=== PATIENT | male | born 1960 | race Caucasian/White ===

== ENCOUNTER 2018-08-17 14:49 | Inpatient (IN) | payer BC, SELFPAY ==
[2018-08-17 16:55] VITALS: BMI 33.2
[2018-08-17] MEDS ORDERED: Ondansetron PF 4 MG/2 ML Vial IVP PRN (17:51)
[2018-08-17] MEDS ORDERED: Communication Order-Pharmacy FS ONE (17:51)
--- NOTE | 2018-08-17 18:14 | RAD ---
EXAM: Single view of the chest HISTORY: Preoperative radiograph prior to open heart surgery COMPARISON: None FINDINGS: Single view of the chest shows a normal sized cardiomediastinal silhouette. There is no valente dence of consolidation, mass, or pleural effusion. Degenerative changes are seen in the spine. IMPRESSION: No evidence of acute cardiopulmonary disease
[2018-08-17 18:32] LABS: #Basophils 0.1 thou/uL (0.0-0.2); #Eosinphils 0.2 thou/uL (0.0-0.7); #Lymphocytes 2.6 thou/uL (1.20-3.40); #Monocytes 0.8 thou/uL (0.11-0.59); #Neutrophils 4.3 thou/uL (1.40-6.50); %Basophils 1.2 % (0.0-1.0); %Eosinophils 2.6 % (0.0-10.0); %Lymphocytes 32.4 % (21.0-51.0); %Monocytes 9.7 % (0.0-10.0); %Neutrophils 54.1 % (42.0-75.0); Hemoglobin 15.8 g/dL (14.0-18.0); Mean Corpuscular HGB CONC 34.6 g/dL (32.0-36.0); Mean Corpuscular Hemoglobin 30.9 pg (27.0-31.0); Mean Corpuscular Volume 89.3 fL (78.0-98.0); Mean Platelet Volume 9.1 fL (7.4-10.4); Platelet Count 175 thou/uL (130-400); RBC Distribution Width 11.6 % (11.5-14.5); Red Blood Cell (RBC) Count 5.11 mill/uL (4.70-6.10)
[2018-08-17 18:37] LABS: Hemoglobin A1c 5.4 % (4.0-6.0); Prothrombin Time 12.8 SEC (12.0-14.7)
[2018-08-17 18:49] LABS: Anion Gap 13 mmol/L (10-20); BUN (Urea Nitrogen) 23 mg/dL (8.4-25.7); Calc. Creatinine Clearance 131 mL/min (70-130); Calcium 9.3 mg/dL (7.8-10.44); Carbon Dioxide 23 mmol/L (22-29); Chloride 105 mmol/L (98-107); Estimated GFR-MDRD 83; Glucose 82 mg/dL (70-105); Potassium 3.5 mmol/L (3.5-5.1); Sodium 137 mmol/L (136-145)
[2018-08-17] MEDS: Famotidine/PF 20 mg/2ml Vial SLOW IVP SCH (20:16)
--- NOTE | 2018-08-18 00:57 | CON ---
DATE OF CONSULTATION: 08/17/2018 REASON FOR CONSULTATION: Evaluate patient for coronary artery bypass grafting. HISTORY OF PRESENT ILLNESS: Mr. Benjamin is a 58-year-old gentleman, who had begun to have upper mid sternal pain with exertion. He was seen by Dr. Zhang and underwent stress testing, which was positive. This was followed with cardiac catheterization today. Ventriculogram shows an ejection fraction of approximately 60%. The left and right main coronary arteries have severe stenoses. Bypassable targets include distal right coronary artery, LAD, diagonal and OM. Currently, he is resting comfortably in the IMCU without chest pain or other complaint. PAST MEDICAL HISTORY: 1. Hypertension. 2. GERD. 3. History of a stroke in 1992, which was due to an intercerebral aneurysm. PAST SURGICAL HISTORY: 1. Appendectomy. 2. Right wrist surgery. 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 He does not use tobacco. ALLERGIES: NONE. CURRENT MEDICATIONS: 1. Omeprazole 40 mg daily. 2. Losartan/HCTZ 100/25 daily. REVIEW OF SYSTEMS: A 10-point review of systems is performed and is negative except as above. PHYSICAL EXAMINATION: GENERAL: Well-developed, well-nourished man, resting comfortably in bed. VITAL SIGNS: Height 5 feet 11 inches, weight is 238 pounds. BSA is 2.33, pulse is 59 and regular, blood pressure is 150/88. HEENT: Sclerae nonicteric. Pupils are equal and round bilaterally. NECK: Supple without bruit. CHEST: Clear to auscultation and percussion bilaterally. HEART: Rhythm is regular without murmur. ABDOMEN: Soft and nontender. There are no masses. EXTREMITIES: No cyanosis, clubbing, or edema. VASCULAR: He has palpable carotid, radial, femoral, dorsalis pedis pulses bilaterally. VENOUS: No venous varicosities or venous stasis change. PSYCHIATRIC: The patient is awake, alert, and oriented to person, place, and time. NEUROLOGIC: The patient states that occasionally when he becomes fatigued, he has some right footdrop and drags his right foot, but otherwise has completely recovered neurologically from his stroke. LABORATORY DATA: Laboratories pending. IMAGING DATA: Chest x-ray shows no dominant lung mass. Lungs are well expanded bilaterally with normal cardiac silhouette. ASSESSMENT AND PLAN: This is a 58-year-old gentleman admitted with a positive stress test and critical coronary anatomy on angiogram. Left ventricular function is preserved. I discussed coronary artery bypass grafting with him with distal targets including left anterior descending, diagonal, obtuse marginal, and distal right coronary. He is agreeable to proceed tomorrow. He has been consented and signed. Job ID: [id number]
[2018-08-18] MEDS ORDERED: Dexamethasone 4 mg/ml Vial ONE (06:25)
[2018-08-18] MEDS ORDERED: Bupivacaine HCl 0.5%/Epinephrine 1:200,000/PF 30 ml Vial ONE (06:25)
[2018-08-18] MEDS ORDERED: Albumin 5% 500 ML ONE (06:26)
[2018-08-18] MEDS ORDERED: Heparin 10,000 UNITS/1 ML VIAL 30,000 UNITS in Sodium Chloride 0.9% 1,000 ML IVPB SCH (06:45)
[2018-08-18] MEDS ORDERED: Fentanyl 250 MCG/5 ML VIAL ONE (06:47)
[2018-08-18] MEDS ORDERED: Norepinephrine 4 MG/4 ML VIAL ONE (06:48)
[2018-08-18] MEDS ORDERED: Vecuronium 10 MG VIAL ONE (06:48)
[2018-08-18] MEDS ORDERED: Midazolam HCl 5 mg/5 ml Vial ONE (06:48)
[2018-08-18] MEDS ORDERED: Dexmedetomidine 200 MCG/2 ML VIAL ONE (06:48)
[2018-08-18] MEDS ORDERED: Midazolam HCl 2 mg/2 ml Vial ONE (07:29)
[2018-08-18] MEDS ORDERED: Ondansetron ODT 4 MG TAB ONE (07:30)
[2018-08-18] MEDS: Famotidine/PF 20 mg/2ml Vial SLOW IVP SCH (11:51)
[2018-08-18] MEDS ORDERED: Magnesium 2 GM/50 ML 2 GM in Premix Bag 1 BAG IVPB SCH (12:26)
[2018-08-18] MEDS ORDERED: HYDROcodone/Acetaminophen 5/325 mg Tablet PO PRN (12:26)
[2018-08-18] MEDS ORDERED: Ondansetron PF 4 MG/2 ML Vial IVP PRN (12:26)
[2018-08-18] MEDS ORDERED: Fentanyl 100 MCG/2 ML VIAL SLOW IVP PRN ×2 (12:26)
[2018-08-18] MEDS ORDERED: Bisacodyl 10 MG SUPP PR PRN (12:26)
[2018-08-18] MEDS ORDERED: Morphine 2 MG/ML SYRINGE SLOW IVP PRN (12:26)
[2018-08-18] MEDS ORDERED: hydrALAZINE 20 MG/ML VIAL SLOW IVP PRN (12:26)
[2018-08-18] MEDS ORDERED: Nitroglycerin 50 MG/250 ML BOT 250 ML IVPB PRN (12:26)
[2018-08-18] MEDS ORDERED: Mag-Al 1200 mg/1200 mg/30 ML UDCUP PO PRN (12:26)
[2018-08-18] MEDS ORDERED: Promethazine HCl 25 MG/ML VIAL IM PRN (12:26)
[2018-08-18] MEDS ORDERED: Bisacodyl 5 MG TAB PO PRN (12:26)
[2018-08-18] MEDS ORDERED: Acetaminophen 325 MG TAB PO PRN (12:26)
[2018-08-18] MEDS ORDERED: Norepinephrine 8 MG/0.9% NS 250 ML IVPB PRN (12:26)
[2018-08-18] MEDS ORDERED: Hetastarch 6% 500 ML 500 ML IVPB PRN (12:26)
[2018-08-18] MEDS ORDERED: D5 1/2 NS w/20 mEq KCL 1,000 ML IV SCH (12:26)
[2018-08-18] MEDS ORDERED: Guaifenesin DM 100-10/5 ML UDCUP PO PRN (12:26)
[2018-08-18] MEDS ORDERED: Dextrose 5% in Water 1,000 ML IV PRN (12:41)
[2018-08-18] MEDS ORDERED: Dextrose 50% Abboject 50 ML SYRINGE SLOW IVP PRN (12:41)
[2018-08-18 12:46] LABS: INR-International Normal Ratio 1.3; Prothrombin Time 16.3 SEC (12.0-14.7)
--- NOTE | 2018-08-18 12:47 | RAD ---
PORTABLE CHEST: DATE: 08/18/2018. PROVIDED CLINICAL HISTORY: Post open heart. FINDINGS: Comparison 08/17/2018. Cardiac silhouette appears prominent, likely at least partially on the basis o f portable supine technique. Interval median sternotomy changes. Interval placement of endotracheal tube, the tip of which projects in the region of the thoracic inlet. Right-sided central line is no rosalind, the tip of which overlies the expected location of right atrium. The supine nature of the exami nation is not sensitive for detection of pleural fluid or pneumothorax. Scattered areas of presumed subsegmental atelectatic change are seen. IMPRESSION: No evidence for an acute cardiopulmonary process with limitations as above. Interval lines and tubes . POS: OFF
[2018-08-18] MEDS: Insulin Regular 300 UNITS/3 ML VIAL SC PRN ×4 (12:49→23:25)
--- NOTE | 2018-08-18 12:49 | OP ---
DATE OF PROCEDURE: 08/18/2018 PREOPERATIVE DIAGNOSES: Coronary artery disease/hypertension. POSTOPERATIVE DIAGNOSES: Coronary artery disease/hypertension. PROCEDURES PERFORMED: Coronary bypass grafting x3. 1. Left internal mammary artery to 1.0-mm mid LAD - good conduit with diffusely diseased, heavily calcified target. 2. Reverse saphenous vein with 1.0-mm diagonal - good conduit and small target. 3. Reverse saphenous vein to 1.5-mm PDA - good conduit, small target. Note, OM was un-bypassable. I would not consider him for redo bypass due to target quality. CO-SURGEON: Dr. Mehul Shepard. ANESTHESIA: General endotracheal - Dr. Torey Toro. PUMP TIME: 48 minutes. CROSS-CLAMP TIME: 29 minutes. LOW-CORE TEMP: 34 degrees Celsius. BINDER CASER: Luz Elena Flanagan. DRAINS: 24-Afghan chest tubes x2. DRIPS: None. TRANSFUSIONS: None. DESCRIPTION OF PROCEDURE: After consent was obtained, the patient was brought to the operating room, placed in supine position on the operating table. Appropriate lines and monitors were placed and general endotracheal anesthesia was induced. Chest and legs were prepped and draped in usual sterile fashion. Using the endoscopic technique, the greater saphenous vein from the left leg was harvested from groin to foot. The vein was then prepared. There was only about 2 segments of vein that were usable out of this leg. Then, 2 skip incisions were made, 1 in the right upper thigh and vein harvested. This was a higher quality vein from the right leg. Wound was irrigated and closed in layers. Median sternotomy was performed. Left internal mammary artery was harvested as a pedicle graft. The patient was systemically heparinized. Distal pedicle was divided and infused with papaverine. Thymic fat and pericardium were divided with electrocautery. Pericardial stay sutures were placed. Aortic and atrial cannulation was performed. After adequate heparinization, retrograde prime was performed. The patient was placed on cardiopulmonary bypass. Distal targets were marked. Aortic cross-clamp was applied and antegrade sanguinous cardioplegic arrest was obtained. 1 L of antegrade cold [place] cardioplegia was given. Topical cold solution was used. Reverse saphenous vein was anastomosed to PDA in an end-to-side fashion with running 7-0 Prolene suture. Anastomosis was tested and was hemostatic. The OM system was explored and there was no bypassable target. Reverse saphenous vein was anastomosed to the 1st diagonal in an end-to-side fashion with running 7-0 Prolene suture. Anastomosis was tested and it was hemostatic. The mammary artery was brought through a window in the pericardium and anastomosed to the mid LAD with running 7-0 Prolene suture. Prior to completion of the anastomosis, a 1-mm probe dilated the anastomosis both proximally and distally. On release of the mammary clamps, good hooding the anastomosis and good distal flow. Pedicle was sutured with interrupted 6-0 Prolene suture. Cross-clamp was removed and partial occluding clamp was placed. Saphenous veins were anastomosed to individual punch sites on the aorta with running 6-0 Prolene suture. Partial occluding clamp was removed and graft was deaired. Anastomoses were inspected for hemostasis, which was good. The patient was warmed and weaned from cardiopulmonary bypass. After resumption of sinus rhythm, good hemodynamics, temperature greater than 36.5, bypass was discontinued. Transfusion was given. Protamine was administered. Decannulation was performed. Pursestring suture was secured. 24-Afghan chest tubes were placed in mediastinum. After adequate hemostasis had been obtained, sternum was treated with vancomycin paste closed with #7 wire. Sternum was treated with platelet rich plasma and wires were twisted. Wound was irrigated and treated with platelet poor plasma and closed in multiple layers. Needle, sponge, and instrument counts were all reported as correct at the end of the procedure. The patient tolerated the procedure well and was transferred to the intensive care unit in stable, but critical condition. Job ID: [id number]
[2018-08-18 12:54] LABS: #Basophils 0.1 thou/uL (0.0-0.2); #Eosinphils 0.2 thou/uL (0.0-0.7); #Lymphocytes 2.5 thou/uL (1.20-3.40); #Monocytes 1.2 thou/uL (0.11-0.59); #Neutrophils 15.5 thou/uL (1.40-6.50); %Basophils 0.5 % (0.0-1.0); %Lymphocytes 12.8 % (21.0-51.0); %Neutrophils 79.7 % (42.0-75.0); Mean Corpuscular HGB CONC 34.8 g/dL (32.0-36.0); Mean Corpuscular Hemoglobin 31.3 pg (27.0-31.0); Mean Corpuscular Volume 89.9 fL (78.0-98.0); Mean Platelet Volume 9.1 fL (7.4-10.4); Platelet Count 144 thou/uL (130-400); RBC Distribution Width 11.5 % (11.5-14.5); Red Blood Cell (RBC) Count 4.46 mill/uL (4.70-6.10); White Blood Cell (WBC) Count 19.4 thou/uL (4.8-10.8)
[2018-08-18 13:02] LABS: Actual Bicarbonate (HCO3a) 20.5 mEq/L (22-28); Base Excess (BEa) -5.4 mEq/L (-2.0 to +3.0); CO2 Tension 41.1 mmHg (35.0-45.0); Calcium, Ionized 1.16 mmol/L (1.12-1.30); Hemoglobin (Hb) 14.4 g/dL (14.0-18.0); O2 Tension (PaO2) 81.9 mmHg (80.0-100.0); Potassium - ABG Lab 3.47 mmol/L (3.70-5.30); pH, Arterial 7.32 (7.35-7.45)
[2018-08-18 13:03] LABS: Anion Gap 11 mmol/L (10-20); BUN (Urea Nitrogen) 19 mg/dL (8.4-25.7); Calc. Creatinine Clearance 143 mL/min (70-130); Calcium 9.1 mg/dL (7.8-10.44); Carbon Dioxide 23 mmol/L (22-29); Chloride 109 mmol/L (98-107); Estimated GFR-MDRD Greater than 90; Glucose 133 mg/dL (70-105); Potassium 3.7 mmol/L (3.5-5.1); Sodium 139 mmol/L (136-145)
[2018-08-18 13:10] LABS: ALV-art Gradient 223.225 (0-20)
[2018-08-18] MEDS: Potassium Chloride 20 MEQ/100 ML PREMIX BAG IVPB PRN ×2 (13:46→19:02)
--- NOTE | 2018-08-18 15:17 | CON ---
DATE OF CONSULTATION: 08/18/2018 SERVICE: Pulmonary Medicine. REASON FOR CONSULT: ICU patient. HISTORY OF PRESENT ILLNESS: The patient is a 58-year-old white male with past medical history significant for coronary artery disease. He presented to his sign poster for episodic chest discomfort that was exertional. He underwent stress testing, which was abnormal, followed by cardiac catheterization demonstrating multivessel disease. The left and right main coronaries had severe stenosis. He came to the hospital for an elective procedure. He is currently intubated and under the influence of some sedating medication. He is able to answer some simple questions by nodding yes and no. He denies having any lung disease like COPD or asthma. PAST MEDICAL HISTORY: 1. Coronary artery disease. 2. Hypertension. 3. Gastroesophageal reflux disease. 4. History of CVA secondary to intercerebral aneurysm. PAST SURGICAL HISTORY: 1. Appendectomy. 2. Right wrist surgery. 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 He does not use any alcohol, tobacco, or illicit drug products to excess. FAMILY HISTORY: Noncontributory. ALLERGIES: NO KNOWN DRUG ALLERGIES. MEDICATIONS: List of his inpatient medications was reviewed. No specific updates were made at this time. REVIEW OF SYSTEMS: Cannot be obtained as the patient is currently intubated on the influence of sedation. PHYSICAL EXAMINATION: VITAL SIGNS: Afebrile, pulse 63, blood pressure 140/75, respirations 19, saturation 95% on 40% FiO2. GENERAL: The patient is intubated and under the influence of a little bit of sedation. His RASS is -1. HEENT: Normocephalic and atraumatic. Sclerae white. Conjunctivae pink. Oral mucosa is moist without lesions. LUNGS: Very good air entry. There is no prolonged expiratory time, wheezing, crackles, or rhonchi present. HEART: Normal rate. Regular. ABDOMEN: Soft, nontender, and nondistended. Bowel sounds are positive. MUSCULOSKELETAL: No cyanosis or clubbing. There is no pitting in the bilateral lower extremities. NEUROLOGIC: Grossly nonfocal. LABORATORY DATA: WBC 19.4, hemoglobin 14.0, and platelets 144,000. INR 1.3. A pH of 7.32, pCO2 of 41, and pO2 of 82. This was on 50% FiO2 and a PEEP of 5 at that time. Basic metabolic profile is completely unremarkable otherwise. Potassium 3.7. Chest x-ray demonstrates postoperative changes of the chest. Endotracheal tube is in good position. No significant effusions are noted. Lung volumes are small. Right-sided subclavian central venous catheter terminates in good position. I truly cannot appreciate thoracostomy tubes or mediastinal drain. ASSESSMENT: 1. Acute hypoxic respiratory failure. 2. Coronary artery disease status post coronary artery bypass graft, postop day zero. 3. Obstructive sleep apnea, suspected. DISCUSSION AND PLAN: The patient is doing fine from respiratory standpoint. He is awake enough at this point, to tolerate a spontaneous breathing trial. I will put him on 07/12, his respiratory rate was regular, and he pulled volumes in excess of 900 mL. I will visit the patient frequently and determine what are actually and extubate him as soon as he meets criteria. Pulmonary/Critical Care will continue to follow along in this location. In the outpatient setting, he may benefit from a sleep apnea screen and if positive, a subsequent polysomnogram. CRITICAL CARE TIME: 30 minutes. Job ID: [id number]
[2018-08-18 15:37] LABS: Actual Bicarbonate (HCO3a) 21.5 mEq/L (22-28); Analyzer IN Cardio OR; Base Excess (BEa) -1.5 mEq/L (-2.0 to +3.0); CO2 Tension 31.9 mmHg (35.0-45.0); Calcium, Ionized 1.15 mmol/L (1.12-1.30); Hemoglobin (Hb) 15.4 g/dL (14.0-18.0); O2 Tension (PaO2) 302.5 mmHg (80.0-100.0); Potassium - ABG Lab 3.76 mmol/L (3.70-5.30); pH, Arterial 7.45 (7.35-7.45)
[2018-08-18 15:38] LABS: Actual Bicarbonate (HCO3a) 19.7 mEq/L (22-28); Analyzer IN Cardio OR; Base Excess (BEa) -2.1 mEq/L (-2.0 to +3.0); Calcium, Ionized 1.04 mmol/L (1.12-1.30); Carboxyhemoglobin (COHb) 0.6 gm% (0.0-3.0); Hemoglobin (Hb) 12.2 g/dL (14.0-18.0); O2 Tension (PaO2) 451.8 mmHg (80.0-100.0); Potassium - ABG Lab 4.47 mmol/L (3.70-5.30)
[2018-08-18 15:38] LABS: Actual Bicarbonate (HCO3a) 19.6 mEq/L (22-28); Analyzer IN Cardio OR; Base Excess (BEa) -4.7 mEq/L (-2.0 to +3.0); CO2 Tension 34.3 mmHg (35.0-45.0); Carboxyhemoglobin (COHb) 0.8 gm% (0.0-3.0); Hemoglobin (Hb) 14.9 g/dL (14.0-18.0); O2 Tension (PaO2) 357.9 mmHg (80.0-100.0); Potassium - ABG Lab 4.08 mmol/L (3.70-5.30); pH, Arterial 7.38 (7.35-7.45)
[2018-08-18 15:39] LABS: Actual Bicarbonate (HCO3a) 20.7 mEq/L (22-28); Analyzer IN Cardio OR; Base Excess (BEa) -2.6 mEq/L (-2.0 to +3.0); CO2 Tension 31.1 mmHg (35.0-45.0); Calcium, Ionized 1.38 mmol/L (1.12-1.30); Carboxyhemoglobin (COHb) 0.3 gm% (0.0-3.0); Hemoglobin (Hb) 11.5 g/dL (14.0-18.0); O2 Tension (PaO2) 334.9 mmHg (80.0-100.0); Potassium - ABG Lab 3.76 mmol/L (3.70-5.30); pH, Arterial 7.44 (7.35-7.45)
[2018-08-18 15:39] LABS: Actual Bicarbonate (HCO3a) 20.8 mEq/L (22-28); Analyzer IN Cardio OR; Base Excess (BEa) -2.8 mEq/L (-2.0 to +3.0); CO2 Tension 32.1 mmHg (35.0-45.0); Calcium, Ionized 1.03 mmol/L (1.12-1.30); Carboxyhemoglobin (COHb) 0.4 gm% (0.0-3.0); Hemoglobin (Hb) 11.4 g/dL (14.0-18.0); O2 Tension (PaO2) 321.8 mmHg (80.0-100.0); Potassium - ABG Lab 4.42 mmol/L (3.70-5.30); pH, Arterial 7.43 (7.35-7.45)
[2018-08-18 15:39] LABS: Actual Bicarbonate (HCO3v) 23 mEq/L (22-28); Analyzer IN Cardio OR; Base Excess -1.8 mEq/L (-2.0 to +3.0); Calcium, Ionized 1.02 mmol/L (1.16-1.32); Chloride (ABG LAB) 106 mmol/L (98-106); Hemoglobin (Hb) 11.6 g/dL (13.1-17.2); Potassium - ABG Lab 4.39 mmol/L (3.70-5.30); Sodium 137.1 mmol/L (133-146)
[2018-08-18 15:40] LABS: Actual Bicarbonate (HCO3a) 20.1 mEq/L (22-28); Analyzer IN Cardio OR; Base Excess (BEa) -4.3 mEq/L (-2.0 to +3.0); CO2 Tension 35.1 mmHg (35.0-45.0); Carboxyhemoglobin (COHb) 0.4 gm% (0.0-3.0); Hemoglobin (Hb) 13.2 g/dL (14.0-18.0); O2 Tension (PaO2) 182.1 mmHg (80.0-100.0); Potassium - ABG Lab 3.73 mmol/L (3.70-5.30); pH, Arterial 7.38 (7.35-7.45)
[2018-08-18 15:41] LABS: Actual Bicarbonate (HCO3a) 22.6 mEq/L (22-28); Analyzer IN Cardio OR; Base Excess (BEa) -0.2 mEq/L (-2.0 to +3.0); CO2 Tension 31.2 mmHg (35.0-45.0); Carboxyhemoglobin (COHb) 0.4 gm% (0.0-3.0); Hemoglobin (Hb) 12.1 g/dL (14.0-18.0); pH, Arterial 7.48 (7.35-7.45)
[2018-08-18 15:42] LABS: Puncture Site ALINE
[2018-08-18 15:42] LABS: Puncture Site ALINE
[2018-08-18 15:43] LABS: Puncture Site ALINE
[2018-08-18 15:44] LABS: CO2 Tension 25.7 mmHg (35.0-45.0); Puncture Site ALINE
[2018-08-18 15:45] LABS: Puncture Site ALINE
[2018-08-18 15:46] LABS: Puncture Site ALINE
[2018-08-18 15:46] LABS: Puncture Site ALINE
[2018-08-18] MEDS: CEFAZOLIN 2 GM in Premix Bag 1 BAG IVPB SCH ×2 (16:07→23:14)
[2018-08-18] MEDS: HYDROcodone/Acetaminophen 5/325 mg Tablet PO PRN ×2 (16:30→21:58)
[2018-08-18] MEDS: Ketorolac Tromethamine 30 MG/ML VIAL IVP SCH ×2 (17:56→23:13)
[2018-08-18 18:26] LABS: Hemoglobin 13.5 g/dL (14.0-18.0)
[2018-08-18 18:43] LABS: Potassium 3.8 mmol/L (3.5-5.1)
[2018-08-18] MEDS ORDERED: Famotidine/PF 20 mg/2ml Vial SLOW IVP SCH (21:00)
[2018-08-18] MEDS ORDERED: Atorvastatin Calcium 20 MG TAB PO SCH (21:00)
[2018-08-19] MEDS: HYDROcodone/Acetaminophen 5/325 mg Tablet PO PRN ×3 (03:02→21:44)
[2018-08-19 05:29] LABS: Anion Gap 10 mmol/L (10-20); BUN (Urea Nitrogen) 18 mg/dL (8.4-25.7); Calc. Creatinine Clearance 138 mL/min (70-130); Calcium 8.5 mg/dL (7.8-10.44); Carbon Dioxide 24 mmol/L (22-29); Chloride 110 mmol/L (98-107); Estimated GFR-MDRD 89; Glucose 107 mg/dL (70-105); Potassium 3.9 mmol/L (3.5-5.1); Sodium 140 mmol/L (136-145)
[2018-08-19 06:13] LABS: #Lymphocytes 1.4 thou/uL (1.20-3.40); #Monocytes 1.5 thou/uL (0.11-0.59); #Neutrophils 11.4 thou/uL (1.40-6.50); %Eosinophils 0.2 % (0.0-10.0); %Lymphocytes 9.9 % (21.0-51.0); %Monocytes 10.4 % (0.0-10.0); %Neutrophils 79.5 % (42.0-75.0); Hemoglobin 11.7 g/dL (14.0-18.0); Mean Corpuscular Volume 91.1 fL (78.0-98.0); Mean Platelet Volume 10.4 fL (7.4-10.4); Platelet Count 115 thou/uL (130-400); Platelet Morphology Comment Appears Decreased; RBC Distribution Width 11.6 % (11.5-14.5); RBC Morphology Normal; Red Blood Cell (RBC) Count 3.77 mill/uL (4.70-6.10); White Blood Cell (WBC) Count 14.3 thou/uL (4.8-10.8)
[2018-08-19] MEDS: Ketorolac Tromethamine 30 MG/ML VIAL IVP SCH ×3 (06:31→18:05)
[2018-08-19] MEDS: Potassium Chloride 20 MEQ/100 ML PREMIX BAG IVPB PRN (07:04)
--- NOTE | 2018-08-19 07:54 | RAD ---
PORTABLE CHEST: Date: 08/19/18 PROVIDED CLINICAL HISTORY: Post open heart. FINDINGS: Comparison with 08/18/18. Interval extubation. Additional significant interval change with respect to the prior examination is not apparent. IMPRESSION: As above. POS: OFF
[2018-08-19] MEDS ORDERED: diphenhydrAMINE 25 MG CAP PO PRN (08:53)
[2018-08-19] MEDS ORDERED: Nitroglycerin 0.4 MG TAB (25 Tab Bottle) SL PRN (08:53)
[2018-08-19] MEDS ORDERED: Mineral Oil ENEMA PR PRN (08:53)
[2018-08-19] MEDS ORDERED: Mag-Al 1200 mg/1200 mg/30 ML UDCUP PO PRN (08:53)
[2018-08-19] MEDS ORDERED: Artificial Tears 18 DROP/0.9 ML EA EYE PRN (08:53)
[2018-08-19] MEDS ORDERED: Milk Of Magnesia 30 ML UDCUP PO PRN (08:53)
[2018-08-19] MEDS ORDERED: Bisacodyl 10 MG SUPP PR PRN (08:53)
[2018-08-19] MEDS ORDERED: Zolpidem Tartrate 5 MG TAB PO PRN (08:53)
[2018-08-19] MEDS ORDERED: Fentanyl 100 MCG/2 ML VIAL SLOW IVP PRN (08:53)
[2018-08-19] MEDS ORDERED: HYDROcodone/Acetaminophen 5/325 mg Tablet PO PRN (08:53)
[2018-08-19] MEDS ORDERED: Ondansetron PF 4 MG/2 ML Vial IVP PRN (08:53)
[2018-08-19] MEDS ORDERED: Bisacodyl 5 MG TAB PO PRN (08:53)
[2018-08-19] MEDS ORDERED: Guaifenesin DM 100-10/5 ML UDCUP PO PRN (08:53)
[2018-08-19] MEDS ORDERED: Aspirin 325 MG TAB PO SCH (09:00)
[2018-08-19] MEDS ORDERED: Magnesium 2 GM/50 ML 2 GM in Premix Bag 1 BAG IVPB SCH (09:00)
[2018-08-19] MEDS: Aspirin 325 mg Enteric Coated Tablet PO SCH (09:33)
[2018-08-19] MEDS: Famotidine 20 MG TAB PO SCH ×2 (09:33→20:24)
[2018-08-19] MEDS: CEFAZOLIN 2 GM in Premix Bag 1 BAG IVPB SCH (09:34)
--- NOTE | 2018-08-19 15:22 | PRG ---
DATE OF SERVICE: 08/19/2018 SERVICE: Pulmonary Medicine. INTERVAL HISTORY: The patient is breathing really well. He is on room air. He denies any current chest discomfort, nausea, or vomiting. Whenever he coughs or takes a deep breath, pulls on them a little bit, but nothing out of the ordinary. He is tolerating p.o. He is not having any nausea, vomiting, or diarrhea. I talked to him today about sleep apnea. He really does not have any excessive sleepiness during the daytime or unrefreshing sleep. He also denies having significant nocturia. PHYSICAL EXAMINATION: VITAL SIGNS: Afebrile, pulse 79, blood pressure 101/58, respirations 14, and saturation 93% on room air. GENERAL: The patient is awake and alert, in no apparent distress. LUNGS: Excellent air entry. There is not any prolonged expiratory phase. Dependent crackles are minimal. HEART: Normal rate, regular. ABDOMEN: Soft, nontender, nondistended. Bowel sounds are positive. MUSCULOSKELETAL: No cyanosis or clubbing. No pitting in the bilateral lower extremities. NEUROLOGIC: Grossly nonfocal. LABORATORY DATA: WBC 14.3, hemoglobin 11.7, and platelets 115,000. INR 1.3. Creatinine 0.88, stable. Basic metabolic profile is otherwise unremarkable. IMAGING: Chest x-ray demonstrates interval extubation. Otherwise, lines and tubes are stable. ASSESSMENT: 1. Acute hypoxic respiratory failure, resolved. 2. Coronary artery disease, status post coronary artery bypass graft, postop day 1. 3. Negative screen for obstructive sleep apnea. DISCUSSION AND PLAN: The patient is doing fine from respiratory standpoint. At this point, he has no further requirements for inpatient Pulmonary Critical Care opinion, and I will sign off. Please call if additional questions or concerns come up. Job ID: [id number]
[2018-08-19] MEDS: Atorvastatin Calcium 20 MG TAB PO SCH (20:24)
[2018-08-19] MEDS ORDERED: Simvastatin 40 MG TAB PO SCH (21:00)
[2018-08-20] MEDS: Ketorolac Tromethamine 30 MG/ML VIAL IVP SCH ×4 (00:03→18:26)
[2018-08-20] MEDS: Aspirin 325 mg Enteric Coated Tablet PO SCH (09:40)
[2018-08-20] MEDS: Famotidine 20 MG TAB PO SCH ×2 (09:40→21:18)
[2018-08-20] MEDS ORDERED: Loratadine 10 MG TAB PO PRN (13:50)
--- NOTE | 2018-08-20 18:54 | CON ---
DATE OF CONSULTATION: 08/20/2018 REASON FOR CONSULTATION: CAD, status post CABG. HISTORY OF PRESENT ILLNESS: Mr. Benjamin is a very pleasant 58-year-old white gentleman, who comes to the hospital for CABG. He is a patient of Dr. Zhang. He underwent stress testing, which was positive for ischemia, so he had heart catheterization that showed severe left main disease. He also had right coronary artery stenosis. He underwent bypass grafting by Dr. Julian on the . He underwent a ESCAMILLA to the LAD, saphenous vein graft to the diagonal and a vein graft to PDA. He is apparently not a candidate for redo bypass as he has very poor quality arteries. He is doing very well. On my evaluation, he is 2 days postoperatively, he denies any chest pain, tightness, or pressure. He started coughing today and he feels some discomfort when he coughs, but has not been really that bad. He has been walking around with physical therapy without issues and also walking around on his own. He has been passing gas and has not had a bowel movement yet. He does not feel stopped up for anything less sort. PAST MEDICAL HISTORY: 1. Hypertension. 2. GERD. 3. Stroke in 1992 secondary to an aneurysm. 4. CAD. PAST SURGICAL HISTORY: 1. Appendectomy. 2. Right wrist surgery. 3. CABG x3 two days ago. SOCIAL HISTORY: No alcohol, tobacco, or drugs. Retired from [employer]. OUTPATIENT MEDICATIONS: Include: 1. Omeprazole 40 mg a day. 2. Losartan/hydrochlorothiazide 100/25 a day. ALLERGIES: NO KNOWN DRUG ALLERGIES. REVIEW OF SYSTEMS: A 12-point review of systems was done and was all negative unless stated in history of present illness. PHYSICAL EXAMINATION: VITAL SIGNS: Temperature 98.5, pulse 71, respiratory rate 13, saturating on room air, and blood pressure 114/63. GENERAL: Awake, alert, and oriented x3, in no distress. HEENT: Normocephalic and atraumatic. NECK: Supple. LUNGS: Clear. CARDIOVASCULAR: S1 and S2. No S3 or S4. No murmurs or rubs. ABDOMEN: Soft. Positive bowel sounds. EXTREMITIES: 1+ edema. SKIN: Warm and dry. LABORATORY DATA: Laboratory work was reviewed. Hemoglobin down to 11.7 from 15 on admission. Coags were reviewed. ABGs were reviewed. Chemistries were reviewed, unremarkable. His glucose has been anyway from 140s to 110s. Calcium of 8.5. Telemetry was reviewed. Chest x-ray was reviewed. ASSESSMENT AND PLAN: 1. Multivessel coronary artery disease. 2. Status post coronary artery bypass grafting x3 with a ESCAMILLA to the LAD, a vein graft to PDA, and a vein graft to a very small diagonal. 3. Hypertension. PLAN: 1. Blood pressure borderline low. 2. We will need aspirin and statin for life, already on 325 of aspirin and 20 mg of atorvastatin. Continue for now. 3. We would restart his losartan at a very low dose in the next few weeks once his blood pressure starts to come back up, currently borderline low to restart it. 4. We will also need a beta oswald, however, currently blood pressure not high enough to start this at that time. 5. Continue to increase PT as tolerated. 6. Continue telemetry monitoring. 7. Once cleared by surgery, he looks quite stable. Job ID: [id number]
[2018-08-20] MEDS: HYDROcodone/Acetaminophen 5/325 mg Tablet PO PRN (21:18)
[2018-08-20] MEDS: Atorvastatin Calcium 20 MG TAB PO SCH (21:18)
[2018-08-21] MEDS: Ketorolac Tromethamine 30 MG/ML VIAL IVP SCH ×3 (01:07→12:33)
[2018-08-21] MEDS: Aspirin 325 mg Enteric Coated Tablet PO SCH (08:29)
[2018-08-21] MEDS: Famotidine 20 MG TAB PO SCH (08:30)
[2018-08-21 11:30] VITALS: BP 110/66; TEMP 97.9
--- NOTE | 2018-08-21 11:55 | PDOC.CTH ---
Cardiology Progress Note - Subjective He is doing very well. - Objective Vital Signs Temp Pulse Pulse Pulse Resp BP BP 08/21/18 11:23 97.9 F 63 18 08/21/18 09:15 75 76 119/65 120/57 L 08/21/18 08:00 98.0 F 71 16 08/21/18 03:17 98.1 F 65 20 BP BP Pulse Ox 08/21/18 11:23 110/66 95 08/21/18 09:15 08/21/18 08:00 134/77 97 08/21/18 03:17 98/57 L 93 L Weight 240 lb 12.8 oz 08/20/18 08/21/18 08/22/18 06:59 06:59 06:59 Intake Total 1360 1120 Output Total 1350 Balance 10 1120 - Physical Examination General/Neuro: alert & oriented x3, NAD Neck: no JVD present Lungs: CTA, unlabored respirations Heart: RRR Abdomen: NT/ND Extremities: + edema B (1+) - Telemetry Telemetry Rhythm: NSR - Labs Result Diagrams: 08/19/18 04:15 08/19/18 04:15 - Assessment/Plan 1. S/P CABG 2. CAD 3. HTN 4. GERD 5. Hx of Stroke PLAN: - BP too low to start BB or ARB. - ASA and statin for life. - Increase PT as tolerated. - Home any time from cardiac perspective. - Follow up with Dr. Zhang in 2-4 weeks.
--- NOTE | 2018-08-21 21:10 | EKG ---
Test Reason : STAT Blood Pressure : / mmHG Vent. Rate : 064 BPM Atrial Rate : 064 BPM P-R Int : 174 ms QRS Dur : 092 ms QT Int : 458 ms P-R-T Axes : 053 004 019 degrees QTc Int : 472 ms Normal sinus rhythm Low voltage QRS Borderline ECG No previous ECGs available Confirmed by Sherin OLIVAREZ ([id number]) on 08/21/2018 9:10:20 PM Referred By: Confirmed By:Sherin OLIVAREZ
--- NOTE | 2018-08-22 05:33 | DIS ---
DATE OF ADMISSION: 08/17/2018 DATE OF DISCHARGE: 08/21/2018 DIAGNOSES: 1. Coronary artery disease. 2. Hypertension. 3. Gastroesophageal reflux disease. 4. History of prior stroke. PROCEDURES: 1. Coronary artery bypass grafting x3 - left internal mammary artery to LAD. 2. Saphenous vein graft to diagonal. 3. Saphenous vein graft to PDA. DESCRIPTION OF HOSPITAL STAY: Mr. Benjamin is a 58-year-old gentleman, who was admitted after being undergoing cardiac catheterization at the [facility]. He was found to have severe 3-vessel disease with an ejection fraction of approximately 60%. He was taken to the operating room and underwent bypass as above on 08/18. Postoperatively, he has done well. He has had no rhythm disturbances. At the time of discharge, he is ambulatory, tolerating a regular diet, having good bowel and bladder function. Incisions are clean and dry without evidence of infection. DISCHARGE MEDICATIONS: 1. Aspirin 325 mg daily. 2. Lipitor 20 mg at bedtime. 3. Numerous other supplements. NOTE: Beta-oswald and JUSTA inhibitor were held due to blood pressure concerns. FOLLOWUP: Followup is with me in [address] Ant Zhang in a month. Job ID: [id number]
== END 2018-08-21 14:46 | disposition home or self-care (01) | DRG 235 ==
LOC: IMCU/EMU 16:22 → CCU 08-18 07:21 → 2NO 08-19 08:52
PROVIDERS: ADMIT Thoracic Surgery (Cardiothoracic Vascular Surgery); ATTEND Thoracic Surgery (Cardiothoracic Vascular Surgery)
PROC: 02100Z9 Bypass Coronary Artery, One Artery from Left Internal Mammary, Open Approach (ICD-10-PCS; principal; 2018-08-18)
PROC: 021109W Bypass Coronary Artery, Two Arteries from Aorta with Autologous Venous Tissue, Open Approach (ICD-10-PCS; 2018-08-18)
PROC: 06BQ4ZZ Excision of Left Saphenous Vein, Percutaneous Endoscopic Approach (ICD-10-PCS; 2018-08-18)
PROC: 5A1221Z Performance of Cardiac Output, Continuous (ICD-10-PCS; 2018-08-18)
DX: I25.10 Atherosclerotic heart disease of native coronary artery without angina pectoris (principal); J96.01 Acute respiratory failure with hypoxia; I10 Essential (primary) hypertension; K21.9 Gastro-esophageal reflux disease without esophagitis; Z90.49 Acquired absence of other specified parts of digestive tract; Z79.899 Other long term (current) drug therapy; Z86.73 Personal history of transient ischemic attack (TIA), and cerebral infarction without residual deficits
CPT/HCPCS: 36415; 36416; 36430; 71045; 80048; 82805; 83036; 85025; 85610; 85730; 86850; 86900; 86901; 93005; 93010; 93798; 94002; 94150; J0670; J0690; J1100; J1642; J1644; J1815; J1885; J2250; J2270; J2405; J2550; J3010; J3480; J7050; P9045; Q0162; S0028